=== PATIENT | female | born 1960 | race Hispanic/Latino ===

== ENCOUNTER 2019-06-22 17:44 | Observation (INO) | payer BC ==
[~2019-06-22] VITALS: Ht 180.3 cm; Wt 72.8 kg
--- OUTSIDE RECORDS SUMMARY | 2019-06-22 17:46 | XMS REPORT | Continuity of Care Document ---
Author Author [employer] Address Unknown Phone Unavailable Care Team Providers Care Tung Nut Grower Name Role Phone [employer] Unavailable Unavailable Problems Problem Status Onset Date Classification Date Reported Comments Source SCREENING Active 10/29/2012 [facility] EXTREMELY DENSE BREAST TISSUE Active 10/06/2011 [facility] ROUTINE Active 07/15/2011 [facility] 6 MTH FOLLOW UP Active 12/10/2009 [facility] Dementia Resolved Problem 02/21/2019 [facility] Medications No Data Provided for This Section Allergies, Adverse Reactions, Alerts No Known Medication Allergies Immunizations No Data Provided for This Section Results No Data Provided for This Section Pathology Reports No Data Provided for This Section Diagnostic Reports Report Value Date Source Brain wo contrast MRI BRAIN MRI CLINICAL HISTORY: Alzheimer's disease. TECHNIQUE: Multiplanar, multisequence MR images were acquired without IV contrast. COMPARISON IMAGING: None. FINDINGS: There is mild generalized cerebral atrophy. Punctate (2-5 mm) foci of abnormal FLAIR hyperintensity are seen in the left frontal mello radiata and the right subinsular white matter (series 4 image 15), most suggestive of early chronic microvascular disease. No intracranial mass effect, hydrocephalus, midline shift, hemorrhage, extra-axial fluid collection, abnormal vascular flow void, or restricted diffusion is seen. Calvarial signal is intact. Paranasal sinuses and the mastoid air cells appear clear. Orbits are within normal limits. IMPRESSION: Stigmata of early chronic microvascular disease. Mild generalized cerebral volume loss. 01/31/2015 MICKY Marino Consultation Notes No Data Provided for This Section Discharge Summaries No Data Provided for This Section History and Physicals No Data Provided for This Section Vital Signs No Data Provided for This Section Encounters Location Location Details Encounter Type Encounter Number Reason For Visit Attending Provider ADM Date DC Date Status Source [facility] Outpatient [id number] ROUTINE AMRIK PRAAFTAB 08/05/2011 Active [facility] Outpatient [id number] EXTREMELY DENSE BREAST TISSUE AMRIK PRANGNICOL 11/13/2011 11/13/2011 Active [facility] - [place] [facility] Diag Services [id number] Amrik Fayle 01/31/2015 02/01/2015 [facility] [place] Outpatient [id number] AMRIK PRANGLE 02/04/2016 Active [facility] [place] Outpatient [id number] AMRIK PRANGLE 04/28/2016 Active [facility] Outpatient [id number] ABRAR ISMAIL 05/05/2016 Active [facility] [place] Outpatient [id number] ABRAR ISMAIL 01/09/2017 Active [facility] [place] Outpatient [id number] ABRAR ISMAIL 02/16/2017 Active [facility] [place] Outpatient [id number] ABRAR ISMAIL 05/11/2017 Active [facility] Phone Message [id number] 08/03/2018 08/05/2018 Medical Group [facility] Outside Medical Records [id number] 08/03/2018 08/05/2018 Medical [facility] Outpatient [id number] 6 MTH FOLLOW UP XIANG FLEMING Active [facility] Outpatient [id number] SCREENING AMRIK العلي [facility] Procedures No Data Provided for This Section Assessment and Plan No Data Provided for This Section Plan of Care No Data Provided for This Section Social History Social History Date Source Social History TypeResponse Smoking Status Never smoker; Type: Cigarettes; Exposure to Tobacco Smoke None; Cigarette Smoking Last 365 Days No; Reg Smoking Cessation Counseling No entered on: 02/16/17 02/16/2017 [facility] Group Social History TypeResponse 02/01/2015 MICKY Marino Family History No Data Provided for This Section Advance Directives No Data Provided for This Section Functional Status No Data Provided for This Section
--- OUTSIDE RECORDS SUMMARY | 2019-06-22 17:47 | XMS REPORT | CCD ---
Author Author Auto Generated Organization [facility] Address Unknown Phone Unavailable Care Team Providers Care Nuclear Weapons Custodian Name Role Phone Magdaleno Rosas RP Allergies, Adverse Reactions, Alerts Substance Reaction Status NKDA Active
--- OUTSIDE RECORDS SUMMARY | 2019-06-22 17:47 | XMS REPORT | Summary of Care ---
Author Organization Unknown Address Unknown Phone Unavailable Encounter HQ Encntr_alias(FIN) [id number] Date(s): 01/31/15 - 01/31/15 [facility] Outpatient Imaging - [id number] [place] [address] [phone] Discharge Disposition: Home Physician Attending: Magdaleno Hendrix MD Vital Signs No data available for this section Problem List No data available for this section Allergies, Adverse Reactions, Alerts Substance Reaction Severity Status NKDA Active Medications No data available for this section Results No data available for this section Immunizations No data available for this section Procedures No data available for this section Social History Social History Type Response Assessment and Plan No data available for this section
--- OUTSIDE RECORDS SUMMARY | 2019-06-22 17:47 | XMS REPORT | Summary of Care ---
Author Author [facility] Address Unknown Phone Unavailable Encounter HQ Encntr_alias(FIN) [id number] Date(s): 08/03/18 - 08/04/18 [place] [id number] [address] 7 [address]- [phone] Vital Signs No data available for this section Problem List Condition Effective Dates Status Health Status Informant Dementia(Confirmed) Resolved Allergies, Adverse Reactions, Alerts Substance Reaction Severity Status NKDA Active Medications No data available for this section Results No data available for this section Immunizations No data available for this section Procedures No data available for this section Social History Social History Type Response Smoking Status Never smoker; Type: Cigarettes; Exposure to Tobacco Smoke None; Cigarette Smoking Last 365 Days No; Reg Smoking Cessation Counseling No entered on: 02/16/17 Assessment and Plan No data available for this section
--- OUTSIDE RECORDS SUMMARY | 2019-06-22 17:47 | XMS REPORT | Summary of Care ---
Author Author [facility] Address Unknown Phone Unavailable Encounter HQ Encntr_alias(FIN) [id number] Date(s): 08/03/18 - 08/04/18 [place] [id number] [address] [address]- [phone] Vital Signs No data available for this [...]
[2019-06-22] MEDS ORDERED: SODIUM CHLORIDE 0.9% 1000ML 1,000 ML IV STA (18:10)
[2019-06-22 19:21] LABS: BASOPHILS % 0.2 % (0.0-1.0); EOSINOPHILS # (AUTO) 0.1 (0.0-0.4); EOSINOPHILS % 2.2 % (0.0-6.0); HEMOGLOBIN 13.1 g/dL (12.0-16.0); LYMPHOCYTES # (AUTO) 1.4 (1.0-3.2); MEAN CORPUSCULAR HEMOGLOBIN 31.9 pg (28-32); MEAN CORPUSCULAR HGB CONC 34.5 g/dL (31-35); MEAN CORPUSCULAR VOLUME 92.5 fL (81-99); MONOCYTES # (AUTO) 0.6 (0.2-0.8); NEUTROPHILS # (AUTO) 3.6 (2.1-6.9); NEUTROPHILS % 62.1 % (38.7-80.0); PLATELET COUNT 199 x10e3/uL (140-360); RED BLOOD COUNT 4.11 x10e6/uL (3.6-5.1); RED CELL DISTRIBUTION WIDTH 12.4 % (11.7-14.4)
[2019-06-22 20:37] LABS: ALANINE AMINOTRANSFERASE 14 IU/L (0-55); ALBUMIN 3.9 g/dL (3.5-5.0); ALBUMIN/GLOBULIN RATIO 1.1 (0.8-2.0); ALKALINE PHOSPHATASE 71 IU/L (40-150); ANION GAP 17.1 mmol/L (8-16); BLOOD UREA NITROGEN 20 mg/dL (7-26); BUN/CREATININE RATIO 24 (6-25); CALCIUM 9.5 mg/dL (8.4-10.2); CARBON DIOXIDE 23 mmol/L (22-29); CHLORIDE 104 mmol/L (98-107); CREATININE, SERUM 0.82 mg/dL (0.57-1.11); EST GLOMERULAR FILTRATION RATE > 60 ML/MIN (60-); GLUCOSE 90 mg/dL (74-118); POTASSIUM 4.1 mmol/L (3.5-5.1); SODIUM 140 mmol/L (136-145)
--- NOTE | 2019-06-22 21:00 | NUR ---
PT. BECAME VERY AGGRESSIVE BEING STRAIGHT-CATHED FOR URINE. FAMILY AT SIDE. PT SAT UP IN BED AND PUNCHED HER FAMILY MEMBER IN THE CHEST, PULLING AND TUGGING AT EVERYTHING WITHIN REACH. IV WRAPPED IN COBAN.
[2019-06-22 21:11] LABS: BILIRUBIN,URINE SMALL (NEGATIVE); CLARITY,URINE SL CLOUDY (CLEAR); COLOR,URINE YELLOW (YELLOW); LEUKOCYTE ESTERASE ,URINE NEGATIVE (NEGATIVE); NITRITE,URINE NEGATIVE (NEGATIVE); PROTEIN,URINE DIPSTICK TRACE (NEGATIVE); URINE UROBILINOGEN 1 mg/dL (0.2 - 1)
[2019-06-22 21:18] LABS: KETONES,URINE 2+ (NEGATIVE)
[2019-06-22 21:21] LABS: BACTERIA,URINE RARE /HPF; EPITHELIAL CELLS,URINE RARE /LPF
[2019-06-22] MEDS ORDERED: ONDANSETRON HCL INJ 2MG/ML 2ML 2 MG/ML VIAL IV PRN (21:45)
[2019-06-22] MEDS ORDERED: IBUPROFEN 400 MG TAB PO PRN (21:45)
[2019-06-22] MEDS ORDERED: IBUPROFEN 200 MG TAB PO PRN (21:45)
[2019-06-22] MEDS ORDERED: CLONIDINE HCL 0.1 MG TAB PO PRN (21:45)
[2019-06-22] MEDS ORDERED: ENALAPRILAT IV INJ 1.25 MG/ML VIAL IV PRN (21:45)
[2019-06-22] MEDS ORDERED: ACETAMINOPHEN 325 MG TAB PO PRN (21:45)
--- NOTE | 2019-06-22 22:15 | NUR ---
Plant Associate, Dominga Zelaya RN, notified of ER MD order for 1:1 sitter
--- OUTSIDE RECORDS SUMMARY | 2019-06-22 22:22 | XMS REPORT | Continuity of Care Document ---
Author Author [employer] Address Unknown Phone Unavailable Care Team Providers Care Service Station Attendant Name Role Phone Eggs Overnight Unavailable Unavailable Problems Problem Status Onset Date Classification Date Reported Comments Source SCREENING Active 10/29/2012 [facility] EXTREMELY DENSE BREAST TISSUE Active 10/06/2011 [facility] ROUTINE Active 07/15/2011 [facility] 6 MTH FOLLOW UP Active 12/10/2009 [facility] Dementia Resolved Problem 02/21/2019 Medical Group [...] Provider ADM Date DC Date Status Source [facility] Outpatient [id number] ROUTINE AMRIK PRAAFTAB 08/05/2011 Active [facility] Outpatient [id number] EXTREMELY DENSE BREAST TISSUE AMRIK PRANGNICOL 11/13/2011 11/13/2011 Active [facility] - [place] Outpt Diag Services [id number] Amrik Fayle 01/31/2015 02/01/2015 [facility] [place] Outpatient [id number] AMRIK PRANGLE 02/04/2016 Active [facility] Outpatient [id number] AMRIK PRANGLE 04/28/2016 Active [facility] [place] [id number] ABRAR ISMAIL 05/05/2016 Active [facility] Outpatient [id number] ABRAR ISMAIL 01/09/2017 Active [facility] Outpatient [id number] ABRAR ISMAIL 02/16/2017 Active [facility] [place] Outpatient [id number] ABRAR ISMAIL 05/11/2017 Active [facility] Primary [facility] Phone Message [id number] 08/03/2018 08/05/2018 Medical Group [facility] Outside Medical Records [id number] 08/03/2018 08/05/2018 Medical [facility] Outpatient [id number] 6 MTH FOLLOW UP XIANG FLEMING Active [facility] Outpatient [id number] SCREENING AMRIK العلي [facility] Procedures No Data Provided for This [...]
[2019-06-22] MEDS ORDERED: ZIPRASIDONE 20 MG VIAL IM STA (22:25)
[2019-06-22] MEDS: LACTATED RINGER'S 1,000 ML IV SCH (23:45)
[2019-06-23] VITALS: BP 106/66
[2019-06-23] MEDS ORDERED: RISPERIDONE0.5 MG PO (00:41)
[2019-06-23] MEDS ORDERED: DONEPEZIL HCL10 MG PO (00:41)
[2019-06-23] MEDS ORDERED: NAMENDA10 MG PO (00:41)
[2019-06-23] MEDS ORDERED: VITAMIN D250000 UNIT PO (00:41)
[2019-06-23] MEDS ORDERED: HALOPERIDOL LACTATE 5 MG/ML VIAL IM ONE (00:45)
--- NOTE | 2019-06-23 00:59 | NUR ---
PT COMBATIVE, RESTLESS, DOES NOT OBEY COMMANDS. FAMILY MEMBERS X2 AT BEDSIDE, PT SWINGING AT STAFF. MEDICATED WITH HALDOL PER ORDERS
--- NOTE | 2019-06-23 00:59 | NUR ---
SITTER AT BEDSIDE, FAMILY LEFT
[2019-06-23] MEDS ORDERED: HALOPERIDOL LACTATE 5 MG/ML VIAL IM STA (01:41)
[2019-06-23] MEDS ORDERED: HALOPERIDOL LACTATE 5 MG/ML VIAL ONE (01:48)
--- NOTE | 2019-06-23 02:30 | NUR ---
PT PULLED OUT IV. DRESSING TO SITE. PT MOVED CLOSER TO NURSES STATION, PLACED ON HOSPITAL BED WITH BED ALARM, FAMILY AT BEDSIDE
[2019-06-23] MEDS: LACTATED RINGER'S 1,000 ML IV SCH (02:40)
--- NOTE | 2019-06-23 02:41 | NUR ---
RESTARTED IV, SECURED WITH TAPE AND COBAN. TOLERATED WELL. PT APPEARS CALM AND TRANQUIL AT THIS TIME. FAMILY AT BEDSIDE.
[2019-06-23] MEDS ORDERED: ZIPRASIDONE 20 MG VIAL IM STA (03:22)
--- NOTE | 2019-06-23 03:25 | NUR ---
PT AGITATED, TRYING TO GET OUT OF BED, FAMILY AT BEDSIDE. MD AWARE, RECEIVED ORDERS FOR GEODON, MEDICATED PER ORDERS
[2019-06-23] MEDS ORDERED: LORAZEPAM INJ 2 MG/ML VIAL IV ONE (04:45)
[2019-06-23] MEDS ORDERED: LORAZEPAM INJ 2 MG/ML VIAL ONE (04:45)
--- NOTE | 2019-06-23 04:45 | NUR ---
PT REMAINS AGITATED, KICKING AT STAFF, ATTEMPTED TO CRAWL OUT FOOT OF BED, DOES NOT OBEY COMMANDS, CLAWING AT STAFF. ASSISTED BACK TO BED, FAMILY AT BEDSIDE AND WILL NOT INTERVENE WHEN PATIENT TRIES TO GET OUT OF BED. BED ALARMS ON AND WORKING. MD AWARE. MEDICATED PER ORDERS WITH ATIVAN
--- NOTE | 2019-06-23 06:53 | NUR ---
report to Manjeet
[2019-06-23] MEDS ORDERED: LORAZEPAM INJ 2 MG/ML VIAL IV PRN (07:00)
--- NOTE | 2019-06-23 07:00 | NUR ---
recevied report from off going nurse. patient in room in hospital bed. family at bedside. pending room assignment. pt with no s/s of acute distress. resp even and nonlabored. bed down call light in reach, will continue to monitor.
[2019-06-23] MEDS: FAMOTIDINE 20 MG TAB PO SCH ×2 (08:23→15:41)
[2019-06-23 13:07] VITALS: BP 111/67
--- NOTE | 2019-06-23 19:00 | Diagnostic Imaging Report ---
Examination: CT BRAIN WO CONTRAST History:Altered mental status Comparison studies:None Technique: Axial images were obtained from the skull base to the vertex. Coronal and sagittal images reconstructed from the axial data. Dose modulation, iterative reconstruction, and/or weight based adjustment of the mA/kV was utilized to reduce the radiation dose to as low as reasonably achievable. Intravenous contrast: None Findings: Scalp: No abnormalities. Bones: No fractures, blastic or lytic lesions. Brain sulci: Moderate volume loss for age. Ventricles: Normal in size and configuration. No hydrocephalus. Extra-axial space: No abnormalities. Parenchyma: There are mild patchy areas of hypoattenuation in the periventricular and subcortical white matter, nonspecific. No masses, hemorrhage, or acute or chronic cortical based vascular insults.. Sellar/suprasellar region: No abnormalities. Craniocervical junction: Patent foramen magnum. No Chiari one malformation. Incidental findings: None. Impression: No acute intracranial abnormalities. Moderate volume loss and mild chronic microvascular ischemic change. Signed by: Dr. Jennifer Cerrato M.D. on 06/23/2019 6:57 PM
[2019-06-23] MEDS: MEMANTINE 10 MG TAB PO SCH (19:59)
[2019-06-23 20:00] VITALS: BP 124/72
[2019-06-23] MEDS ORDERED: RISPERIDONE 0.5 MG TAB PO SCH (21:00)
[2019-06-23 22:23] VITALS: BP 124/72
--- NOTE | 2019-06-24 00:02 | History and Physical ---
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 The patient started to have acute mental status changes. The patient was non-verbal and was very hard to control. The patient had some psychotic episode and has not been eating for the last 3 days. brought the patient in secondary to acute mental status changes. The patient is admitted to the hospital for hyperkalemia. The patient was also admitted to the hospital for dehydration and fluid resuscitation. PAST MEDICAL HISTORY: 1. History of advanced organic dementia. 2. History of these psychotic episodes with dementia, otherwise, negative history. SOCIAL HISTORY: She lives with , who is a primary photo engraver. No EtOH. No IV drug abuse and no history of smoking either. PAST SURGICAL HISTORY: No prior surgical history. MEDICATIONS: 1. The patient is taking donepezil. 2. The patient is taking: a. Vitamin D3, 61810 units p.o. every weekly. b. Memantine 10 mg b.i.d. c. Risperidone 0.5 mg, a total of 1 mg at nighttime. No recent change in medications by the neurologist. The patient has been put on risperidone. Prior to this, the patient was on quetiapine. ALLERGIES: NO DRUG ALLERGIES. REVIEW OF SYSTEMS: Unable to get because of florid dementia. PHYSICAL EXAMINATION: GENERAL: The patient is sleepy, lorazepam injection IV was given. HEENT: Normocephalic, atraumatic. Pupils are reactive. LUNGS: Clear to auscultation bilaterally. ABDOMEN: Nontender, nondistended. EXTREMITIES: No clubbing, no cyanosis, and no edema. NEUROLOGIC: Hard to assess. PSYCH: The patient is sleepy and is sedated with Ativan. LABORATORY TESTING: White count is 5.83, hemoglobin of 13.1, hematocrit of 38.0. Chemistry shows sodium 140, potassium 4.1. BUN of 20, creatinine 0.82. Urine showed trace protein, ketones positive, RBCs were 6 to 10. MICROBIOLOGY: Urine cultures, preliminary and are pending. No growth holding. ASSESSMENT: 1. Change in acute mental status encephalopathy associated with dementia. 2. Dehydration. 3. Florid dementia. PLAN: Would be to CT scan of brain without contrast. Consult Neurology if needed and also check her labs and lytes in the morning. Further recommendation per clinical course. We will continue to monitor the patient. The patient will be here only for observation status and we will continue to monitor the patient's medications and her lytes. MD MATTHEW Rankin/MODL /[id number]
[2019-06-24 04:00] VITALS: BP 107/64
[2019-06-24 05:26] LABS: BASOPHILS % 0.4 % (0.0-1.0); EOSINOPHILS % 0.7 % (0.0-6.0); HEMATOCRIT 37.3 % (34.2-44.1); HEMOGLOBIN 12.5 g/dL (12.0-16.0); LYMPHOCYTES # (AUTO) 1.9 (1.0-3.2); LYMPHOCYTES % 35.3 % (18.0-39.1); MEAN CORPUSCULAR HEMOGLOBIN 30.9 pg (28-32); MEAN CORPUSCULAR HGB CONC 33.5 g/dL (31-35); MEAN CORPUSCULAR VOLUME 92.3 fL (81-99); MONOCYTES # (AUTO) 0.6 (0.2-0.8); MONOCYTES % 11.4 % (4.4-11.3); NEUTROPHILS # (AUTO) 2.8 (2.1-6.9); PLATELET COUNT 174 x10e3/uL (140-360); RED BLOOD COUNT 4.04 x10e6/uL (3.6-5.1); RED CELL DISTRIBUTION WIDTH 12.2 % (11.7-14.4)
[2019-06-24 05:54] LABS: ANION GAP 18.5 mmol/L (8-16); BLOOD UREA NITROGEN 14 mg/dL (7-26); BUN/CREATININE RATIO 17 (6-25); CALCIUM 9.9 mg/dL (8.4-10.2); CARBON DIOXIDE 23 mmol/L (22-29); CHLORIDE 105 mmol/L (98-107); CREATININE, SERUM 0.81 mg/dL (0.57-1.11); EST GLOMERULAR FILTRATION RATE > 60 ML/MIN (60-); GLUCOSE 63 mg/dL (74-118); POTASSIUM 3.5 mmol/L (3.5-5.1); SODIUM 143 mmol/L (136-145)
--- NOTE | 2019-06-24 07:00 | NUR ---
Pt received resting in bed. Alert and oriented to person alone. Oriented to staff and surroundings. Encouraged to press call millard if help needed. Pt for discharge this am. Will monitor
--- NOTE | 2019-06-24 07:14 | Discharge Summary ---
DATE: SUBJECTIVE: The patient is a 59-year-old female, who comes in with acute mental status changes and also dehydration. The patient is on IV fluids, was able to eat yesterday something. The patient also was given Risperdal, memantine, and Aricept yesterday. Currently, asymptomatic. Sleeping well. According to , no events at nighttime. OBJECTIVE: VITAL SIGNS: Temperature is 96.7, pulse of 50, respirations of 18, blood pressure is 107/64, and pulse oximetry of 98%. HEENT: Normocephalic and atraumatic. Pupils reactive to light and accommodation. CVS: S1, S2 normal. Regular rhythm. ABDOMEN: Nontender and nondistended. EXTREMITIES: No clubbing, no cyanosis, no edema. IMAGING STUDIES: Done yesterday showed no intracranial abnormalities, moderate volume loss, and mild chronic microvascular ischemic changes. LABORATORY VALUES: White count is normal at 5.46, hemoglobin 12.5, and hematocrit 37.3. Chemistries; glucose of 143, potassium 4.5. The patient's glucose today was 63. ASSESSMENT: 1. Acute mental status change. 2. Encephalopathy associated with dementia. 3. Dehydration. 4. Dementia. 5. Hypoglycemia. PLAN: 1. Encourage the patient to eat today. 2. The patient has a PET scan scheduled with a neurologist in the morning if the patient is able to ambulate and also eat. The patient can be discharged to home. Further recommendation per clinical course. The patient will follow up with a neurologist as an outpatient basis. MD MATTHEW Rankin/ANDREEAL /[id number]
[2019-06-24 08:00] VITALS: BP 140/70
[2019-06-24 08:02] VITALS: BP 140/78
[2019-06-24] MEDS: FAMOTIDINE 20 MG TAB PO SCH (08:22)
[2019-06-24] MEDS: MEMANTINE 10 MG TAB PO SCH (08:22)
--- NOTE | 2019-06-24 08:22 | NUR ---
All meds given as ordered. Will monitor
[2019-06-24] MEDS ORDERED: ONDANSETRON HCL 4 MG ORAL DISINTEGRATING TAB PO PRN (09:00)
--- NOTE | 2019-06-24 10:20 | NUR ---
Pt's educated regarding meds, diet, activities, s/s to report and follow up appointment. verbalized understanding of teaching. Pt left in wheelchair with all belongings
--- NOTE | 2019-06-24 10:35 | NUR ---
Pt left in wheelchair with & daughter to private car
== END 2019-06-24 10:32 | disposition home or self-care (01) ==
LOC: ER 17:44 → ERHOLD 22:20 → IMCU 06-23 12:01
PROVIDERS: ADMIT Family Medicine; ATTEND Family Medicine
DX: E86.0 Dehydration (principal); F03.90 Unspecified dementia, unspecified severity, without behavioral disturbance, psychotic disturbance, mood disturbance, and anxiety; E16.2 Hypoglycemia, unspecified
CPT/HCPCS: 36415 ×2; 70450; 80048; 80053; 81001; 85025 ×2; 87086; 99284; G0378 ×3; J1630; J2060; J3486 ×2; J7030; J7121